=== PATIENT | female | born 1990 ===

== ENCOUNTER 2016-09-20 23:45 | Emergency (ER) | payer MEDICAID ==
[2016-09-21 00:18] VITALS: BP 117/60; PULSE 61; RESP 16; TEMP 97.9; O2SAT 100
--- NOTE | 2016-09-21 00:18 | ED PDOC ---
HPI: Female Pain Time Seen by Provider: 09/21/16 00:15 Chief Complaint (Nursing): Female Genitourinary Chief Complaint (Provider): vaginal discharge History Per: Patient Additional Complaint(s): 26-year-old female presents to emergency department with itching and burning to external genitalia associated with thick white discharge for 2 days. Patient has history of frequent yeast infections and frequent bacterial vaginosis. She has been worked up by her system support developer for this and has an appointment on Friday for a colposcopy. The patient has been tested for STDs in the last couple of weeks and was told that all of her results came back negative. She denies fever or chills and denies any abdominal pain. Patient denies any dysuria but states that if her urine touches the external skin of her vagina she feels a stinging pain. No associated fever or chills. Past Medical History Reviewed: Historical Data, Nursing Documentation, Vital Signs - Medical History PMH: No Chronic Diseases - Surgical History Surgical History: No Surg Hx - Family History Family History: States: No Known Family Hx - Living Arrangements Living Arrangements: With Family - Social History Current smoker - smoking cessation education provided: No Alcohol: None Drugs: Denies - Home Medications Home Medications: Ambulatory Orders Medication Instructions Recorded Chlorpheniramine Polistirex/ 5 ml PO Q12 #80 ml 02/21/14 [Tussionex Pennkinetic 8 mg/5 ml-10 mg/5 ml 5 ] Guaifenesin/Pseudoephedrne HCl 1 tab PO DAILY PRN #30 ter 02/21/14 [Mucinex D 600 mg-60 mg] Fluconazole [Diflucan] 150 mg PO ASDIR #2 tab 04/08/16 metroNIDAZOLE [Flagyl] 500 mg PO BID #14 tab 04/08/16 - Allergies Allergies/Adverse Reactions: Allergies Allergy/AdvReac Type Severity Reaction Status Date / Time No Known Allergies Allergy Verified 09/21/16 00:14 Review of Systems ROS Statement: Except As Marked, All Systems Reviewed And Found Negative Constitutional: Negative for: Fever Gastrointestinal: Negative for: Abdominal Pain Genitourinary Female: Positive for: Vaginal Discharge, Other (external itching and burning). Negative for: Dysuria, Frequency, Incontinence, Hematuria Physical Exam - Reviewed Nursing Documentation Reviewed: Yes Vital Signs Reviewed: Yes - Physical Exam Appears: Positive for: Well, Non-toxic, No Acute Distress Skin: Negative for: Rash Eye Exam: Positive for: Normal appearance Cardiovascular/Chest: Positive for: Regular Rate, Rhythm Respiratory: Positive for: Normal Breath Sounds Gastrointestinal/Abdominal: Positive for: Normal Exam, Soft. Negative for: Tenderness, Distended, Guarding, Rebound Pelvic Exam: Positive for: Other (Slight erythema noted to external genitalia with no lesions or rash, there is a copious amount of thick white discharge noted, os is closed and cervix appears normal, no active bleeding, nontender uterus, nontender adnexa bilaterally) Back: Negative for: L CVA Tenderness, R CVA Tenderness Neurologic/Psych: Positive for: Alert, Oriented - Laboratory Results Urine POC: Negative - ECG O2 Sat by Pulse Oximetry: 100 Pulse Ox Interpretation: Normal Medical Decision Making Medical Decision Makin26 year old with vaginal discomfort Plan: Pelvic exam and genital culture Urine test, UA and culture Patient was treated with 1 time dose of diflucan and flagyl in ED. UA: leuks noted however this is likely a contaminant due to yeast. Urine culture was sent. 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 Disposition - Clinical Impression Clinical Impression: Vaginitis - Patient ED Disposition Is Patient to be Admitted: No Counseled Patient/Family Regarding: Studies Performed, Diagnosis, Need For Followup, Rx Given - Disposition [facility] Disposition: Routine/Home Disposition Time: 01:52 Condition: STABLE Additional Instructions: Follow up Friday with your system support developer as scheduled. Instructions: Vaginitis (ED)
[2016-09-21 01:05] LABS: RBC URINE 14 /hpf (0-3); URINE BACTERIA RARE (<OCC); URINE BILIRUBIN NEGATIVE (NEGATIVE); URINE BLOOD NEGATIVE (NEGATIVE); URINE COLOR YELLOW (YELLOW); URINE GLUCOSE (UA) NEG (Normal); URINE KETONE TRACE mg/dL (NEGATIVE); URINE LEUKOCYTE ESTERASE LARGE Leu/uL (Negative); URINE PROTEIN 30 mg/dL (NEGATIVE); WBC URINE 9 /hpf (0-5)
[2016-09-21] MEDS ORDERED: Fluconazole 150 MG TAB PO STA (01:38)
== END 2016-09-21 02:01 | disposition home or self-care (01) ==
LOC: H.ER 23:45
DX: N76.0 Acute vaginitis (principal)